=== PATIENT | female | born 1980 | race Caucasian/White ===

== ENCOUNTER 2020-01-28 14:24 | Emergency (ER) | payer OTHER ==
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
[2020-01-28 15:33] LABS: ABS Eosinophils 0.2 10^3/ul (0-0.6); ABS Lymphocytes 1.7 10^3/ul (1.0-4.8); ABS Monocytes 0.7 10^3/ul (0-0.8); ABS Neutrophils 4.5 10^3/ul (1.5-7.7); Eosinophil % 2.6 %; Hematocrit 41 % (35-47); Hemoglobin 13.5 g/dL (12.0-16.0); Lymphocyte % 23.9 %; Mean Corpuscular HGB Conc 33 g/dL (31-36); Mean Corpuscular Hemoglobin 29 pg (27-31); Mean Corpuscular Volume 88 fL (80-97); Mean Platelet Volume 7.3 fL (7.4-10.4); Nucleated Red Blood Cells % 0.1; Platelet Count 325 10^3/uL (150-450); Red Blood Count 4.65 10^6 /uL (3.70-4.87); Red Cell Distribution Width 14 % (10-15); White Blood Count 7.1 10^3/uL (3.5-10.8)
--- NOTE | 2020-01-28 15:56 | ED ---
- HPI Summary HPI Summary: 40 year old female presents with left thumb injury. She states that she was cleaning some equipment from the OR when it ended up puncturing her left thumb. She did not know straight away but then noticed that she was bleeding. She states it went through her two layers of gloves. Is unsure what patient it was from. Her tetanus up-to-date. Has no medical conditions. States she is currently getting the hep B series is going to have last in series in a couple weeks. She immediately was the area. - History of Current Complaint Chief Complaint: EDExposureBodyFluid Stated Complaint: LT THUMB LAC PER PT Time Seen by Provider: 01/28/20 15:16 PMH/Surg Hx/FS Hx/Imm Hx Endocrine/Hematology History: Denies: Hx Anticoagulant Therapy Respiratory History: Denies: Hx Asthma Infectious Disease History: No Infectious Disease History: Denies: Traveled Outside the [place] in Last 30 Days - Family History Known Family History: Positive: Non-Contributory - Social History Alcohol Use: Occasionally Substance Use Type: Reports: Excessive Caffeine Smoking Status (MU): Light Every Day Tobacco Smoker Review of Systems Negative: Fever Negative: Chest Pain Negative: Shortness Of Breath Positive: Other - left thumb puncture wound All Other Systems Reviewed And Are Negative: Yes Physical Exam Triage Information Reviewed: Yes Vital Signs On Initial Exam: Initial Vitals Temp Pulse Resp BP Pulse Ox 98.3 F 85 18 123/67 97 01/28/20 14:28 01/28/20 14:28 01/28/20 14:28 01/28/20 14:28 01/28/20 14:28 Vital Signs Reviewed: Yes Appearance: Positive: Well-Appearing Skin: Positive: Warm, Dry, Other - puncture wound to left thumb near nail Head/Face: Positive: Normal Head/Face Inspection Eyes: Positive: Normal, Conjunctiva Clear ENT: Positive: Pharynx normal Respiratory/Lung Sounds: Positive: Clear to Auscultation, Breath Sounds Present Cardiovascular: Positive: Normal, RRR Musculoskeletal: Positive: Strength/ROM Intact - left thumb Neurological: Positive: Normal Psychiatric: Positive: Normal Procedures - Sedation Patient Received Moderate/Deep Sedation with Procedure: No Diagnostics - Vital Signs Vital Signs Temp Pulse Resp BP Pulse Ox 01/28/20 14:28 98.3 F 85 18 123/67 97 - Laboratory Lab Results: Lab Results 02/28/20 Range/Units 15:28 WBC 7.1 (3.5-10.8) 10^3/uL RBC 4.65 (3.70-4.87) 10^6 /uL Hgb 13.5 (12.0-16.0) g/dL Hct 41 (35-47) % MCV 88 (80-97) fL MCH 29 (27-31) pg MCHC 33 (31-36) g/dL RDW 14 (10-15) % Plt Count 325 (150-450) 10^3/uL MPV 7.3 L (7.4-10.4) fL Neut % (Auto) 63.9 % Lymph % (Auto) 23.9 % Hawkins % (Auto) 9.2 % Eos % (Auto) 2.6 % Baso % (Auto) 0.4 % Absolute Neuts (auto) 4.5 (1.5-7.7) 10^3/ul Absolute Lymphs (auto) 1.7 (1.0-4.8) 10^3/ul Absolute Monos (auto) 0.7 (0-0.8) 10^3/ul Absolute Eos (auto) 0.2 (0-0.6) 10^3/ul Absolute Basos (auto) 0.0 (0-0.2) 10^3/ul Absolute Nucleated RBC 0.0 10^3/ul Nucleated RBC % 0.1 Result Diagrams: 01/28/20 15:28 02 15:28 Lab Statement: Any lab studies that have been ordered have been reviewed, and results considered in the medical decision making process. Needlestick Course/Dx - Course Course Of Treatment: 40 year old female presents with left thumb injury. She states that she was cleaning some equipment from the OR when it ended up puncturing her left thumb. She did not know straight away but then noticed that she was bleeding. She states it went through her two layers of gloves. Is unsure what patient it was from. Her tetanus up-to-date. Has no medical conditions. States she is currently getting the hep B series is going to have last in series in a couple weeks. She immediately was the area. On exam has a puncture wound to left thumb. She cleaned the area. As the patient is unknown and it was likely from ortho tools to do a hip will start on HIV prophylaxis. Lab work within normal limits. give HIV prophylaxis after discussing risks and benefits. told follow up with Dr. Franco. Patient understands and agrees the plan. - Diagnoses Provider Diagnoses: Needlestick injury accident Discharge ED - Sign-Out/Discharge Documenting (check all that apply): Patient Departure - Discharge Plan Condition: Good Disposition: HOME Prescriptions: Ondansetron ODT TAB* [Zofran 4 MG Odt TAB*] 4 mg PO Q6H PRN #20 tab.odt PRN Reason: Nausea Raltegravir* [Isentress*] 400 mg PO BID #42 tab Tenofovir/Emtricitab 200/300 * [Truvada 200/300 mg*] 1 tab PO DAILY #21 tab Patient Education Materials: Emtricitabine/Tenofovir (By mouth), Raltegravir ( By mouth), Postexposure Prophylaxis (ED) Referrals: Amol Clark MD [Primary Care Provider] - Lowell MALAGON,Buck Escalante [Medical Doctor] - Additional Instructions: Take truvada once a day Take raltegravir twice a day Take Zofran every 6 hours for nausea Follow up with Dr Franco Return to ED if develop any new or worsening symptoms - Billing Disposition and Condition Condition: GOOD Disposition: Home
[2020-01-28] MEDS ORDERED: Tenofovir/Emtricitab 200/300 * TAB PO ONE (15:57)
[2020-01-28] MEDS ORDERED: Raltegravir* 400 MG TAB PO ONE (15:58)
[2020-01-28 16:01] LABS: HCG Pregnancy < 0.60 mIU/mL
[2020-01-28 16:11] LABS: ALT 21 U/L (7-52); AST 15 U/L (13-39); Albumin 4.4 g/dL (3.2-5.2); Albumin/Globulin Ratio 1.6 (1-3); Alkaline Phosphatase 71 U/L (34-104); Anion Gap 8 mmol/L (2-11); BUN/Creatinine Ratio 18.5 (8-20); Blood Urea Nitrogen 15 mg/dL (6-24); CO2 Carbon Dioxide 23 mmol/L (22-32); Chloride 108 mmol/L (101-111); EGFR African American 95.7 (>60); EGFR Non-African American 79.1 (>60); Globulin 2.7 g/dL (2-4); Glucose 82 mg/dL (70-100); Potassium 4.3 mmol/L (3.5-5.0); Sodium 139 mmol/L (135-145); Total Protein 7.1 g/dL (6.4-8.9)
[2020-01-28] MEDS ORDERED: O ndansetron ODT 4MG 5TAB PRPK 4 MG PAK PO ONE (16:18)
[2020-01-28 16:24] LABS: Hepatitis B Surface Antigen Nonreactive (Nonreactive)
[2020-01-28 16:32] LABS: HIV 4th Generation Nonreactive (Nonreactive)
[2020-01-28 16:41] LABS: Hepatitis B Surface Ab Immune (Immune); Hepatitis C Antibody Negative (Negative)
[2020-01-28 17:18] VITALS: BP 125/85
== END 2020-01-28 17:14 | disposition home or self-care (01) ==
LOC: ED 14:24
DX: S61.032A Puncture wound without foreign body of left thumb without damage to nail, initial encounter (principal); W46.1XXA Contact with contaminated hypodermic needle, initial encounter; Y93.E9 Activity, other interior property and clothing maintenance; Y92.234 Operating room of hospital as the place of occurrence of the external cause; Y99.0 Civilian activity done for income or pay; Z88.5 Allergy status to narcotic agent; Z91.040 Latex allergy status; F17.200 Nicotine dependence, unspecified, uncomplicated
CPT/HCPCS: 36415; 80053; 84702; 85025; 86706; 86803; 87340; 87389; 99283; A9270-GY